=== PATIENT | male | born 1990 | race African-American/Black ===

== ENCOUNTER 2023-02-26 03:23 | Emergency (ER) | payer OTHER ==
[~2023-02-26] VITALS: Ht 167.6 cm; Wt 61.2 kg
[2023-02-26 03:23] VITALS: BP 133/92; PULSE 100; RESP 17
== END 2023-02-26 03:24 | disposition left against medical advice (07) ==
LOC: EDH 03:23
DX: M79.642 Pain in left hand (principal); Z53.21 Procedure and treatment not carried out due to patient leaving prior to being seen by health care provider
CPT/HCPCS: 99281